=== PATIENT | female | born 1945 | race African-American/Black ===

== ENCOUNTER 2016-08-04 08:13 | Day surgery (SDC) | payer OTHER ==
--- NOTE | ~2016-08-04 | EGD ---
EGD REPORT [facility] [address] [address] NAME: STACIE MURDOCK : [birth year] [place] [facility] [place] [id number] AGE: 71 ADM/REG DATE : 08/04/16 MR#: [id number] REPORT SERV DATE: 08/04/16 DICTATED BY: MANJIT MIMS DATE: 08/04/16 REPORT STATUS : Draft TRANSCRIBED BY: [facility] DATE: 08/04/16 Endoscopy Center Patient Name: Stacie Murdock Date of : 1945 Attending MD: MANJIT MIMS MD Procedure Date No Time: 08/04/2016 Procedure: Upper GI endoscopy Indications: Epigastric abdominal pain Referring MD: ANTONIETA DUARTE Medicines: See the Anesthesia note for documentation of the administered medications Complications: No immediate complications. Procedure: Pre-Anesthesia Assessment: - ASA Grade Assessment: IV - A patient with severe systemic disease that is a constant threat to life. After obtaining informed consent, the endoscope was passed under direct vision. Throughout the procedure, the patient's blood pressure, pulse, and oxygen saturations were monitored continuously. The GIF [id number] was introduced through the mouth, and advanced to the second part of duodenum. The upper GI endoscopy was accomplished without difficulty. The patient tolerated the procedure well. Findings: The examined duodenum was normal. Mild inflammation was found in the gastric antrum. Biopsies were taken with a cold forceps for histology. The cardia and gastric fundus were normal on retroflexion. A small hiatus hernia was present. Impression: - Normal examined duodenum. - Gastritis. Biopsied. - Hiatus hernia. Recommendation: - Patient has a contact number available for emergencies. The signs and symptoms of potential delayed complications were discussed with the patient. Return to normal activities tomorrow. Written discharge instructions were provided to the patient. - Regular diet. - Continue present medications. - Appointment with Dr Mims's Nurse Practitioner in 6 weeks - FOR YOUR BIOPSY RESULTS: Please go to EGD REPORT [address] [place]. [address] NAME: STACIE MURDOCK : [birth year] [place] [facility] [place] [id number] AGE: 71 ADM/REG DATE : 08/04/16 MR#: [id number] REPORT SERV DATE: 08/04/16 DICTATED BY: MANJIT MIMS DATE: 08/04/16 REPORT STATUS : Draft TRANSCRIBED BY: [facility] DATE: 08/04/16 [email or web address] and register to receive your results via the portal. Your biopsy results will be posted there in about 7 to 10 days. IF you do not see result in 10 days, call office. Procedure Code(s): --- Professional --- 26054, Esophagogastroduodenoscopy, flexible, transoral; with biopsy, single or multiple Diagnosis Code(s): --- Professional --- K29.70, Gastritis, unspecified, without bleeding K44.9, Diaphragmatic hernia without obstruction or gangrene R10.13, Epigastric pain CPT copyright 2013 [employer]. All rights reserved. The codes documented in this report are preliminary and upon air bag stripper review may be revised to meet current compliance requirements. Manjit Mims MD MANJIT MIMS MD 08/04/2016 9:34 AM This report has been signed electronically. Number of Addenda: 0 Note Initiated On: 08/04/2016 9:22 AM Scope Withdrawal Time 0 hours 0 minutes 0 seconds [id number] [place] [id number]
[~2016-08-04 08:13] MED LIST: CLARIT10 PO; COZAAR100 MG PO; CRESTOR10 PO; IRON PO; LOP50 PO; PEP20 PO; PROTONIX PO; SUCR PO; SYN.025B PO; ULTRAM50 PO
== END 2016-08-04 23:59 | disposition home or self-care (01) ==
LOC: DMU 08:13
PROVIDERS: Internal Medicine Gastroenterology
PROC: 0DB68ZX Excision of Stomach, Via Natural or Artificial Opening Endoscopic, Diagnostic (ICD-10-PCS; principal; 2016-08-04 09:00)
DX: K29.50 Unspecified chronic gastritis without bleeding (principal); I10 Essential (primary) hypertension; E78.00 Pure hypercholesterolemia, unspecified; M19.90 Unspecified osteoarthritis, unspecified site; K74.60 Unspecified cirrhosis of liver; E03.9 Hypothyroidism, unspecified; E64.9 Sequelae of unspecified nutritional deficiency; K21.9 Gastro-esophageal reflux disease without esophagitis; Z86.73 Personal history of transient ischemic attack (TIA), and cerebral infarction without residual deficits; Z79.02 Long term (current) use of antithrombotics/antiplatelets; Z79.899 Other long term (current) drug therapy; Z90.722 Acquired absence of ovaries, bilateral; Z98.890 Other specified postprocedural states
CPT/HCPCS: 88305; 88342